=== PATIENT | male | born 1960 | race Caucasian/White ===

== ENCOUNTER 2023-08-04 16:52 | Outpatient (CLI) | payer BC ==
--- NOTE | 2023-08-05 08:16 | XRAY Report ---
PROCEDURE: Shoulder 2+V LT INDICATIONS: SHOULDER JOINT PAIN, LEFT TECHNIQUE: 3 views of the shoulder were acquired. COMPARISON: None. FINDINGS: Bones: No fractures or dislocations. Moderate left acromioclavicular joint and glenohumeral joint os teoarthritic changes are seen. No suspicious bony lesions. Visualized ribs appear intact. Soft tissues: No suspicious soft tissue calcifications. The visualized lungs are within normal limi ts. IMPRESSION: No acute bony abnormality. Moderate left shoulder joint osteoarthritis. Reviewed by: Eyad Tidwell MD on 08/05/2023 8:15 AM PDT Approved by: Eyad Tidwell MD on 08/05/2023 8:15 AM PDT Station ID: [id number]
== END 2023-08-04 16:53 | disposition home or self-care (01) ==
LOC: DI 16:52
PROVIDERS: ATTEND Physician Assistant
DX: M19.012 Primary osteoarthritis, left shoulder (principal)